=== PATIENT | male | born 1950 | race Caucasian/White ===

== ENCOUNTER 2019-08-16 10:35 | Day surgery (SDC) | payer MEDICARE, BC ==
[2019-08-09 12:04] LABS: BASOPHILS % (AUTO) 0.1 % (0-1); EOSINOPHILS # (AUTO) 0.1 X10'3 (0-0.9); EOSINOPHILS % (AUTO) 2.1 % (0-6); HEMATOCRIT 46.4 % (42.0-52.0); HEMOGLOBIN 15.6 g/dl (14.0-17.9); LYMPHOCYTES # (AUTO) 1.1 X10'3 (1.1-4.8); LYMPHOCYTES % (AUTO) 22.8 % (21-51); MEAN CORPUSCULAR HEMOGLOBIN 31.2 PG (27.0-31.0); MEAN CORPUSCULAR HGB CONC 33.6 g/dL (33.0-36.5); MEAN PLATELET VOLUME 7.9 FL (7.4-10.4); MONOCYTES # (AUTO) 0.5 X10'3 (0-0.9); MONOCYTES % (AUTO) 9.8 % (2-12); NEUTROPHILS # (AUTO) 3.1 X10'3 (1.8-7.7); NEUTROPHILS % (AUTO) 65.2 % (42-75); PLATELET COUNT 221 X10'3 (140-440); RED BLOOD COUNT 4.99 X10'6 (4.70-6.10); RED CELL DISTRIBUTION WIDTH 13.3 % (11.5-14.5); WHITE BLOOD COUNT 4.8 X10'3 (4.5-11.0)
[2019-08-09 12:11] LABS: PARTIAL THROMBOPLASTIN TIME 27 SECONDS (22-32)
[2019-08-09 12:22] LABS: ALANINE AMINOTRANSFERASE 24 U/L (12-78); ALBUMIN 3.9 G/DL (3.4-5.0); ALBUMIN/GLOBULIN RATIO 1.3 (1.1-1.5); ALKALINE PHOSPHATASE 45 IU/L (46-116); ANION GAP 7 (8-16); ASPARTATE AMINO TRANSFERASE 19 U/L (10-37); BILIRUBIN,TOTAL 0.5 MG/DL (0.1-1.0); BLOOD UREA NITROGEN 22 MG/DL (7-18); BUN/CREATININE RATIO 18.8 (5.4-32.0); CALCIUM 9.6 MG/DL (8.5-10.1); CHLORIDE 106 MMOL/L (99-107); CREATININE 1.17 MG/DL (0.60-1.10); GLUCOSE 217 MG/DL (70-104); POTASSIUM 4.3 MMOL/L (3.5-5.1); SODIUM 142 MMOL/L (135-145); TOTAL CARBON DIOXIDE 28.6 MMOL/L (24-32); eGFR 62 ML/MIN
[~2019-08-16] VITALS: Ht 177.8 cm; Wt 118.6 kg
[2019-08-16] VITALS (12 sets, daily range): BP systolic 98–122; BP diastolic 57–79
[2019-08-16] MEDS ORDERED: MESSAGE TO PHARMACY PO ONE (10:55)
[2019-08-16] MEDS ORDERED: dextrose 50%-water 50ml dispensing syringe IV PRN ×2 (10:55)
[2019-08-16] MEDS ORDERED: insulin Lispro (HumaLOG) vial - multi-dose SQ SCH (10:55)
[2019-08-16] MEDS ORDERED: LORazepam 0.5 MG tablet PO PRN (10:55)
[2019-08-16] MEDS ORDERED: diphenhydrAMINE 25mg capsule PO PRN (10:55)
[2019-08-16] MEDS ORDERED: dextrose ORAL solution 15 GM/59 ML bottle PO PRN ×2 (10:55)
[2019-08-16] MEDS ORDERED: normal saline 1,000 ML IV SCH (10:55)
[2019-08-16] MEDS ORDERED: nitroGLYCERIN 0.4mg SUBLingual tab SL PRN ×2 (10:55→13:30)
[2019-08-16] MEDS ORDERED: glucagon, human recombinant 1mg kit SUBCUT PRN (10:55)
[2019-08-16] MEDS ORDERED: [UNRECOGNIZED DRUG - OTHER] PO (11:52)
[2019-08-16] MEDS ORDERED: CHOL20004 PO (11:52)
[2019-08-16] MEDS ORDERED: SOLI5TAB2 PO (11:52)
[2019-08-16] MEDS ORDERED: NITR0.4T48 SL (11:52)
[2019-08-16] MEDS ORDERED: ATOR20TA PO (11:52)
[2019-08-16] MEDS ORDERED: AMLO5TAB4 PO (11:52)
[2019-08-16] MEDS ORDERED: FENO145T26 PO (11:52)
[2019-08-16] MEDS ORDERED: GLIMEPIRIDE PO (11:52)
[2019-08-16] MEDS ORDERED: FLO0.4C PO (11:52)
[2019-08-16] MEDS ORDERED: METF500T PO (11:52)
[2019-08-16] MEDS ORDERED: iohexol 350 MG/ML 50ML vial IV ONE (12:01)
[2019-08-16] MEDS ORDERED: iohexol 350MG/ML 100ml bottle IV ONE (12:01)
[2019-08-16] MEDS ORDERED: LIDOcaine 1% (10mg/ml)w/preservative injection 20ml MDV ONE (12:01)
[2019-08-16] MEDS ORDERED: fentaNYL/PF 50MCG/1 ML 2ML syringe ONE (12:05)
[2019-08-16] MEDS ORDERED: midazolam 2 mg/2 ml injection ONE (12:05)
[2019-08-16] MEDS ORDERED: HYDROcodone/acetaminophen 5mg/325mg tablet PO PRN (13:25)
[2019-08-16] MEDS ORDERED: ondansetron/PF 4mg/2ml inj IV PRN (13:25)
[2019-08-16] MEDS ORDERED: normal saline 1000ml 1,000 ML IV SCH (13:25)
[2019-08-16] MEDS ORDERED: OXAZEpam 15mg capsule PO PRN (13:30)
[2019-08-16] MEDS ORDERED: proCHLORperazine 10 MG/2 ml inj IV PRN (13:30)
[2019-08-16] MEDS ORDERED: HYDROcodone/acetaminophen 10/325mg tab PO PRN (13:30)
[2019-08-16] MEDS ORDERED: insulin glargine (Lantus) pen - multi-dose SQ SCH (21:00)
== END 2019-08-16 20:10 | disposition home or self-care (01) ==
LOC: SSTAY O 10:35
PROVIDERS: ATTEND Internal Medicine Cardiovascular Disease
DX: R94.39 Abnormal result of other cardiovascular function study (principal); I25.118 Atherosclerotic heart disease of native coronary artery with other forms of angina pectoris; G47.33 Obstructive sleep apnea (adult) (pediatric); J44.9 Chronic obstructive pulmonary disease, unspecified; E11.9 Type 2 diabetes mellitus without complications; I10 Essential (primary) hypertension; F32.9 Major depressive disorder, single episode, unspecified; E78.5 Hyperlipidemia, unspecified; M19.90 Unspecified osteoarthritis, unspecified site; Z79.899 Other long term (current) drug therapy; Z79.01 Long term (current) use of anticoagulants
CPT/HCPCS: 36415; 71046; 80053; 82948; 85025; 85610; 85730; 93005; 93458; 99152; 99153; C1769; J1644; J2001; J2250; J2405; J3010; J7030; Q0163; Q9967; 93459; A4620; A6258; C1760; J1815

== ENCOUNTER 2022-05-04 09:26 | Day surgery (SDC) | payer MEDICARE, BC ==
[2022-04-29 12:48] LABS: BASOPHILS % (AUTO) 0.6 % (0-1); EOSINOPHILS # (AUTO) 0.1 X10'3 (0-0.9); EOSINOPHILS % (AUTO) 1.5 % (0-6); HEMATOCRIT 37.4 % (42.0-52.0); HEMOGLOBIN 12.6 g/dl (14.0-17.9); LYMPHOCYTES % (AUTO) 19.4 % (21-51); MEAN CORPUSCULAR HEMOGLOBIN 31.6 PG (27.0-31.0); MEAN CORPUSCULAR HGB CONC 33.8 g/dL (33.0-36.5); MEAN CORPUSCULAR VOLUME 93.5 FL (78-98); MONOCYTES # (AUTO) 0.4 X10'3 (0-0.9); MONOCYTES % (AUTO) 7.9 % (2-12); NEUTROPHILS # (AUTO) 3.8 X10'3 (1.8-7.7); NEUTROPHILS % (AUTO) 70.6 % (42-75); PLATELET COUNT 211 X10'3 (140-440); RED CELL DISTRIBUTION WIDTH 13.1 % (11.5-14.5); WHITE BLOOD COUNT 5.3 X10'3 (4.5-11.0)
[2022-04-29 13:17] LABS: APTT 27 SECONDS (22-32)
[2022-04-29 13:19] LABS: ALANINE AMINOTRANSFERASE 27 U/L (12-78); ALBUMIN 3.8 G/DL (3.4-5.0); ALBUMIN/GLOBULIN RATIO 1.1 (1.1-1.5); ALKALINE PHOSPHATASE 47 IU/L (46-116); ANION GAP 11 (8-16); ASPARTATE AMINO TRANSFERASE 24 U/L (10-37); BILIRUBIN,TOTAL 0.3 MG/DL (0.1-1.0); BLOOD UREA NITROGEN 49 MG/DL (7-18); BUN/CREATININE RATIO 24.3 (5.4-32.0); CALCIUM 9.1 MG/DL (8.5-10.1); CHLORIDE 102 MMOL/L (99-107); CREATININE 2.02 MG/DL (0.60-1.10); GLUCOSE 191 MG/DL (70-104); POTASSIUM 5.1 MMOL/L (3.5-5.1); SODIUM 134 MMOL/L (135-145); TOTAL CARBON DIOXIDE 20.9 MMOL/L (24-32); TOTAL PROTEIN 7.2 G/DL (6.4-8.2); eGFR 33 ML/MIN
[~2022-05-04] VITALS: Ht 180.3 cm; Wt 115.0 kg
[2022-05-04] VITALS (12 sets, daily range): BP systolic 106–124; BP diastolic 47–73
[~2022-05-04 09:26] MED LIST: AMLO5TAB4 PO; ATOR20TA PO; CHOL20004 PO; FENO145T26 PO; FLO0.4C PO; GLIMEPIRIDE PO; METF500T PO; NITR0.4T48 SL; SOLI5TAB2 PO; [UNRECOGNIZED DRUG - OTHER] PO
[2022-05-04] MEDS ORDERED: nitroGLYCERIN 0.4mg SUBLingual tab SL PRN (09:50)
[2022-05-04] MEDS ORDERED: diphenhydrAMINE 25mg capsule PO PRN (09:50)
[2022-05-04] MEDS ORDERED: normal saline 1,000 ML IV SCH (09:50)
[2022-05-04] MEDS ORDERED: LORazepam 0.5 MG tablet PO PRN (09:50)
[2022-05-04] MEDS ORDERED: CLOP75TA34 PO (10:03)
[2022-05-04] MEDS ORDERED: DAPA5TAB PO (10:03)
[2022-05-04] MEDS ORDERED: OLME20TA23 PO (10:03)
[2022-05-04] MEDS ORDERED: TIRZ5PEN (10:03)
[2022-05-04] MEDS ORDERED: METO-395 PO (10:03)
[2022-05-04] MEDS ORDERED: ASPI-611 PO (10:06)
[2022-05-04] MEDS ORDERED: MULT-1085 PO (10:06)
[2022-05-04] MEDS ORDERED: SOLI10TA7 PO (10:11)
[2022-05-04] MEDS ORDERED: insulin Lispro (HumaLOG) vial - multi-dose SQ SCH (10:20)
[2022-05-04] MEDS ORDERED: dextrose 50%-water 50ml dispensing syringe IV PRN ×2 (10:20)
[2022-05-04] MEDS ORDERED: DEXTROSE 15 GM of carb/4 tabs (each vial/BOTTLE has 4 tablets) PO PRN ×2 (10:20)
[2022-05-04] MEDS ORDERED: glucagon, human recombinant 1mg kit SUBCUT PRN (10:20)
[2022-05-04] MEDS ORDERED: fentaNYL/PF 50MCG/1 ML 2ML syringe ONE (10:49)
[2022-05-04] MEDS ORDERED: LIDOcaine 1% 30ml preserv. free vial ONE (10:49)
[2022-05-04] MEDS ORDERED: midazolam 1 mg/ML 2ml injection ONE (10:49)
[2022-05-04] MEDS ORDERED: iohexol 300mg/ml 100ml inj. ONE (10:50)
[2022-05-04] MEDS ORDERED: iohexol 350 MG/ML 50ML vial IV ONE (10:50)
[2022-05-04] MEDS ORDERED: OXAZEpam 15mg capsule PO PRN (12:45)
[2022-05-04] MEDS ORDERED: HYDROcodone/acetaminophen 5mg/325mg tablet PO PRN (12:45)
[2022-05-04] MEDS ORDERED: proCHLORperazine 10 MG/2 ml inj IV PRN (12:45)
[2022-05-04] MEDS ORDERED: ondansetron/PF 4mg/2ml inj IV PRN (12:45)
[2022-05-04] MEDS ORDERED: HYDROcodone/acetaminophen 10/325mg tab PO PRN (12:45)
[2022-05-04] MEDS ORDERED: insulin glargine (Lantus) pen - multi-dose SQ SCH (21:00)
== END 2022-05-04 18:00 | disposition home or self-care (01) ==
LOC: SSTAY O 09:26
PROVIDERS: ATTEND Internal Medicine Cardiovascular Disease
DX: R94.39 Abnormal result of other cardiovascular function study (principal); I25.10 Atherosclerotic heart disease of native coronary artery without angina pectoris; I10 Essential (primary) hypertension; E78.5 Hyperlipidemia, unspecified; E11.9 Type 2 diabetes mellitus without complications; Z79.01 Long term (current) use of anticoagulants
CPT/HCPCS: 36415; 71046; 80053; 82948; 85025; 85610; 85730; 93005; 93458; 99152; C1760; C1769; J1644; J1815; J2250; J3010; J3490; J7030; Q0163; Q9967; 99153; A4620

== ENCOUNTER 2023-03-08 10:31 | Emergency (ER) | payer MEDICARE, BC ==
[~2023-03-08] VITALS: Ht 179.1 cm; Wt 100.9 kg
[~2023-03-08 10:31] MED LIST changes: -AMLO5TAB4 PO; +ASPI-611 PO; -ATOR20TA PO; +CLOP75TA34 PO; +DAPA5TAB PO; -GLIMEPIRIDE PO; +METO-395 PO; +MULT-1085 PO; +OLME20TA23 PO; +SOLI10TA7 PO; +TIRZ5PEN; -[UNRECOGNIZED DRUG - OTHER] PO
[2023-03-08 10:47] VITALS: TEMP 99.4
[2023-03-08 10:51] LABS: HEMATOCRIT 41.6 % (42.0-52.0); RED BLOOD COUNT 4.37 X10'6 (4.70-6.10)
[2023-03-08 10:53] LABS: BASOPHILS % (AUTO) 0.2 % (0-1); EOSINOPHILS % (AUTO) 0.1 % (0-6); HEMOGLOBIN 13.9 g/dl (14.0-17.9); LYMPHOCYTES # (AUTO) 0.8 X10'3 (1.1-4.8); LYMPHOCYTES % (AUTO) 5.9 % (21-51); MEAN CORPUSCULAR HEMOGLOBIN 31.8 PG (27.0-31.0); MEAN CORPUSCULAR HGB CONC 33.4 g/dL (33.0-36.5); MEAN CORPUSCULAR VOLUME 95.3 FL (78-98); MONOCYTES # (AUTO) 0.8 X10'3 (0-0.9); MONOCYTES % (AUTO) 5.4 % (2-12); NEUTROPHILS # (AUTO) 12.5 X10'3 (1.8-7.7); NEUTROPHILS % (AUTO) 88.4 % (42-75); PLATELET COUNT 195 X10'3 (140-440); RED CELL DISTRIBUTION WIDTH 13.7 % (11.5-14.5); WHITE BLOOD COUNT 14.1 X10'3 (4.5-11.0)
[2023-03-08 11:07] LABS: ALANINE AMINOTRANSFERASE 16 U/L (12-78); ALBUMIN 3.8 G/DL (3.4-5.0); ALBUMIN/GLOBULIN RATIO 1.1 (1.1-1.5); ALKALINE PHOSPHATASE 29 IU/L (46-116); ASPARTATE AMINO TRANSFERASE 16 U/L (10-37); BILIRUBIN,TOTAL 0.6 MG/DL (0.1-1.0); CALCIUM 9.5 MG/DL (8.5-10.1); TOTAL CARBON DIOXIDE 25.3 MMOL/L (24-32); TOTAL PROTEIN 7.2 G/DL (6.4-8.2)
[2023-03-08 11:15] LABS: PRO BRAIN NATRIURETIC PEPTIDE 412 PG/ML (0-125)
[2023-03-08 11:17] LABS: ANION GAP 8 (8-16); BLOOD UREA NITROGEN 44 MG/DL (7-18); BUN/CREATININE RATIO 17.7 (10.0-20.0); CHLORIDE 103 MMOL/L (99-107); CREATININE 2.48 MG/DL (0.60-1.10); GLUCOSE 166 MG/DL (70-104); SODIUM 136 MMOL/L (135-145); eCRCL 28 ML/MIN; eGFR 26 ML/MIN
[2023-03-08] MEDS ORDERED: normal saline 1000ML IV soln IVB ONE ×2 (12:40→12:50)
[2023-03-08 12:59] LABS: BILIRUBIN,URINE NEGATIVE (Neg); CLARITY,URINE CLEAR (Clear); COLOR,URINE YELLOW (Yellow); GLUCOSE, URINE >=1000 mg/dl (Neg); KETONES,URINE NEGATIVE (Neg); LEUKOCYTE ESTERASE ,URINE NEGATIVE (Neg); NITRITES, URINE NEGATIVE (Neg); OCCULT BLOOD,URINE NEGATIVE (Neg); PH,URINE 5.5 (4.8-8.0); PROTEIN,URINE NEGATIVE (Neg); UROBILINOGEN,URINE 0.2 E.U/dL (0.2-1.0)
[2023-03-08 13:06] LABS: UA COLLECTION TYPE CLN CATCH MIDSTREAM
[2023-03-08 13:08] LABS: BACTERIA,URINE NONE SEEN /HPF (Neg); RBC,URINE NONE SEEN /HPF (0-2); SQUAMOUS EPITHELIAL CELL,UR FEW /LPF (FEW); WBC,URINE 0-4 /HPF (0-4)
[2023-03-08 14:58] VITALS: BP 112/74; PULSE 74; RESP 16; O2SAT 98
== END 2023-03-08 14:59 | disposition home or self-care (01) ==
LOC: ER 10:31
DX: R55 Syncope and collapse (principal); I95.1 Orthostatic hypotension; E11.9 Type 2 diabetes mellitus without complications; I11.0 Hypertensive heart disease with heart failure; Z88.8 Allergy status to other drugs, medicaments and biological substances; Z79.899 Other long term (current) drug therapy
CPT/HCPCS: 36415; 70450; 71045; 80053; 81001; 83880; 84484; 85025; 93005; 96360; 99285; J7030

== ENCOUNTER 2024-07-10 21:51 | Inpatient (IN) | payer MEDICARE, BC ==
[~2024-07-10] VITALS: Ht 180.3 cm; Wt 99.7 kg
[~2024-07-10 21:51] MED LIST changes: -OLME20TA23 PO; +OLME20TA69 PO; -TIRZ5PEN; +TIRZ5PEN INJ
[2024-07-10] MEDS: normal saline 500ml IV soln 500 ML IV ONE (22:33)
[2024-07-10] MEDS: proCHLORperazine 10 MG/2 ml inj IV PRN (22:33)
[2024-07-10 22:36] LABS: BASOPHILS % (AUTO) 0.9 % (0-1); EOSINOPHILS # (AUTO) 0.1 X10'3 (0-0.9); EOSINOPHILS % (AUTO) 1.6 % (0-6); HEMATOCRIT 49.7 % (42.0-52.0); HEMOGLOBIN 17.2 g/dl (14.0-17.9); LYMPHOCYTES # (AUTO) 1.6 X10'3 (1.1-4.8); LYMPHOCYTES % (AUTO) 29.7 % (21-51); MEAN CORPUSCULAR HEMOGLOBIN 33.1 PG (27.0-31.0); MEAN CORPUSCULAR HGB CONC 34.6 g/dL (33.0-36.5); MEAN CORPUSCULAR VOLUME 95.6 FL (78-98); MEAN PLATELET VOLUME 7.6 FL (7.4-10.4); MONOCYTES # (AUTO) 0.5 X10'3 (0-0.9); MONOCYTES % (AUTO) 8.4 % (2-12); NEUTROPHILS # (AUTO) 3.2 X10'3 (1.8-7.7); NEUTROPHILS % (AUTO) 59.4 % (42-75); PLATELET COUNT 162 X10'3 (140-440); WHITE BLOOD COUNT 5.4 X10'3 (4.5-11.0)
[2024-07-10 22:49] LABS: ALBUMIN 3.9 G/DL (3.4-5.0); ANION GAP 8 (8-16); BLOOD UREA NITROGEN 21 MG/DL (7-18); BUN/CREATININE RATIO 18.4 (10.0-20.0); CALCIUM 9.4 MG/DL (8.5-10.1); CHLORIDE 102 MMOL/L (99-107); CREATININE 1.14 MG/DL (0.60-1.10); GLUCOSE 168 MG/DL (70-104); POTASSIUM 3.8 MMOL/L (3.5-5.1); SODIUM 137 MMOL/L (135-145); TOTAL CARBON DIOXIDE 27.2 MMOL/L (24-32); eCRCL 61 ML/MIN; eGFR 63 ML/MIN
[2024-07-10 22:54] LABS: APTT 28 SECONDS (22-32); INR 1.1 INR
[2024-07-10] MEDS ORDERED: iohexol 350MG/ML 100ml bottle IV ONE (23:15)
[2024-07-10 23:16] LABS: ETHANOL < 10 MG/DL (<10)
[2024-07-10 23:58] LABS: BILIRUBIN,URINE NEGATIVE (Neg); CLARITY,URINE CLEAR (Clear); COLOR,URINE YELLOW (Yellow); GLUCOSE, URINE 100 mg/dl (Neg); KETONES,URINE NEGATIVE (Neg); LEUKOCYTE ESTERASE ,URINE NEGATIVE (Neg); NITRITES, URINE NEGATIVE (Neg); OCCULT BLOOD,URINE NEGATIVE (Neg); PROTEIN,URINE NEGATIVE (Neg)
[2024-07-11 00:06] LABS: UA COLLECTION TYPE CLN CATCH MIDSTREAM
[2024-07-11] MEDS ORDERED: potassium Cl 40MEQ/1/2NS 520ml 520 ML IV PRN (00:45)
[2024-07-11] MEDS ORDERED: ondansetron/PF 4mg/2ml inj IV PRN (00:45)
[2024-07-11] MEDS ORDERED: potassium Cl 20 mEq SR tablet PO PRN ×2 (00:45)
[2024-07-11] MEDS ORDERED: magnesium sulf-water 4G/100mL 100 ML IV PRN (00:45)
[2024-07-11] MEDS ORDERED: magnesium sulf-water 2g/50mL 50 ML IV PRN (00:45)
[2024-07-11] MEDS ORDERED: magnesium Cl slow-release 64mg tablet PO PRN (00:45)
[2024-07-11] MEDS ORDERED: acetaminophen 325mg tablet PO PRN (00:45)
[2024-07-11 00:47] LABS: URINE AMPHETAMINE SCREEN NEGATIVE (Neg); URINE BARBITUATE SCREEN NEGATIVE (Neg); URINE BENZODIAZEPINES SCREEN NEGATIVE (Neg); URINE CANNABINOID SCREEN NEGATIVE (Neg); URINE COCAINE SCREEN NEGATIVE (Neg); URINE METHADONE SCREEN NEGATIVE (Neg); URINE OPIATE SCREEN NEGATIVE (Neg); URINE PHENCYCLIDINE SCREEN NEGATIVE (Neg)
[2024-07-11] MEDS ORDERED: GLIM1TAB57 PO (00:52)
[2024-07-11] MEDS ORDERED: aspirin 325mg tablet, delayed-release (Ecotrin) PO ONE (01:00)
[2024-07-11 01:32] LABS: MAGNESIUM 1.7 MG/DL (1.5-2.4)
[2024-07-11 01:36] LABS: HEMOGLOBIN A1C 5.9 % (4.5-6.2)
[2024-07-11] MEDS: acetaminophen 325mg tablet PO ONE (02:13)
[2024-07-11] MEDS: aspirin 81mg, enteric-coated 1 TAB TABLET.DR PO ONE (02:13)
[2024-07-11 02:23] LABS: ALANINE AMINOTRANSFERASE 20 U/L (12-78); ASPARTATE AMINO TRANSFERASE 15 U/L (10-37)
[2024-07-11] MEDS ORDERED: normal saline 500ml IV soln 500 ML IV ONE (02:50)
[2024-07-11 03:45] VITALS: BP 154/76; PULSE 77; RESP 16; TEMP 98.3; O2SAT 94
[2024-07-11] MEDS ORDERED: DEXTROSE 15 GM of carb/4 tabs (each vial/BOTTLE has 4 tablets) PO PRN ×2 (05:45)
[2024-07-11] MEDS ORDERED: glucagon, human recombinant 1mg kit SUBCUT PRN (05:45)
[2024-07-11] MEDS ORDERED: dextrose 50%-water 50ml dispensing syringe IV PRN ×2 (05:45)
[2024-07-11 06:00] VITALS: BP 126/62; PULSE 71; RESP 14; TEMP 98.3; O2SAT 93
[2024-07-11 06:50] LABS: CHOLESTEROL 179 MG/DL (0-200); HDL CHOLESTEROL 36 MG/DL (35-60); LDL CHOLESTEROL 95 MG/DL (50-100); TRIGLYCERIDES 254 MG/DL (20-135)
[2024-07-11] MEDS: K and/or MAG REPLACEMENT MC SCH (08:00)
[2024-07-11] MEDS ORDERED: glimepiride 1 MG tablet PO SCH (08:00)
[2024-07-11] MEDS ORDERED: clopidogrel 75mg tablet PO SCH (08:00)
[2024-07-11] MEDS: DAPAGLIFLOZIN 10MG TABLET PO SCH (08:00)
[2024-07-11] MEDS: aspirin 81mg tab.chew PO SCH (08:31)
[2024-07-11] MEDS: cholecalciferol (vitamin D3) 1,000 unit (25mcg) tablet PO SCH (08:31)
[2024-07-11] MEDS: metFORMIN 500mg tablet PO SCH (08:31)
[2024-07-11] MEDS: multivitamins, therapeutics tablet PO SCH (08:31)
[2024-07-11] MEDS: clopidogrel 75mg tablet PO SCH (08:31)
[2024-07-11] MEDS: fenofibrate 145mg tablet PO SCH (08:31)
[2024-07-11] MEDS: tamsulosin 0.4mg capsule PO SCH (08:31)
[2024-07-11] MEDS: oxybutynin 5mg tablet PO SCH (08:32)
[2024-07-11 10:00] VITALS: BP 135/65; PULSE 74; RESP 15; TEMP 98.6; O2SAT 94
[2024-07-11] MEDS ORDERED: CHOL100046 PO (17:32)
[2024-07-11] MEDS ORDERED: FLO0.4C PO (17:32)
[2024-07-12] MEDS ORDERED: cholecalciferol (vitamin D3) 1,000 unit (25mcg) tablet PO SCH (08:00)
[2024-07-15 17:17] LABS: HEPARIN ANTI-XA LMWH <0.10 IU/mL (.)
== END 2024-07-11 18:05 | disposition home or self-care (01) | DRG 69 ==
LOC: ER 21:52 → ED HOLD 07-11 01:27 → ORTHO 4S 07-11 03:30
PROVIDERS: ADMIT Internal Medicine Sleep Medicine; ATTEND Internal Medicine
PROC: B3251ZZ Computerized Tomography (CT Scan) of Bilateral Common Carotid Arteries using Low Osmolar Contrast (ICD-10-PCS; principal; 2024-07-11)
PROC: B32G1ZZ Computerized Tomography (CT Scan) of Bilateral Vertebral Arteries using Low Osmolar Contrast (ICD-10-PCS; 2024-07-11)
PROC: B32R1ZZ Computerized Tomography (CT Scan) of Intracranial Arteries using Low Osmolar Contrast (ICD-10-PCS; 2024-07-11)
PROC: B3281ZZ Computerized Tomography (CT Scan) of Bilateral Internal Carotid Arteries using Low Osmolar Contrast (ICD-10-PCS; 2024-07-11)
DX: G45.9 Transient cerebral ischemic attack, unspecified (principal); I10 Essential (primary) hypertension; I25.10 Atherosclerotic heart disease of native coronary artery without angina pectoris; E11.9 Type 2 diabetes mellitus without complications; Z95.5 Presence of coronary angioplasty implant and graft; Z79.82 Long term (current) use of aspirin; Z79.899 Other long term (current) drug therapy; Z79.84 Long term (current) use of oral hypoglycemic drugs
CPT/HCPCS: 36415; 70450; 70496; 70498; 70551; 71045; 80048; 80061; 80305; 80320; 81003; 82948; 83036; 83735; 84450; 84460; 84484; 85025; 85610; 85730; 86592; 87081; 92508; 92616; 93005; 97116; 97161; 97530; 99291; G0378; J0780; J7030; J7040; Q9967

== ENCOUNTER 2024-08-02 15:42 | Outpatient (CLI) | payer MEDICARE, BC ==
[~2024-08-02 15:42] MED LIST changes: +CHOL100046 PO; -CHOL20004 PO; -METF500T PO; -SOLI10TA7 PO; -SOLI5TAB2 PO; -TIRZ5PEN INJ
[2024-08-02 16:26] LABS: BASOPHILS # (AUTO) 0.1 X10'3 (0-0.2); BASOPHILS % (AUTO) 0.7 % (0-1); EOSINOPHILS # (AUTO) 0.1 X10'3 (0-0.9); EOSINOPHILS % (AUTO) 1.6 % (0-6); HEMATOCRIT 51.8 % (42.0-52.0); HEMOGLOBIN 17.1 g/dl (14.0-17.9); LYMPHOCYTES # (AUTO) 1.8 X10'3 (1.1-4.8); LYMPHOCYTES % (AUTO) 22.8 % (21-51); MEAN CORPUSCULAR HEMOGLOBIN 32.1 PG (27.0-31.0); MEAN CORPUSCULAR HGB CONC 33.1 g/dL (33.0-36.5); MONOCYTES # (AUTO) 0.7 X10'3 (0-0.9); MONOCYTES % (AUTO) 8.9 % (2-12); NEUTROPHILS # (AUTO) 5.1 X10'3 (1.8-7.7); PLATELET COUNT 218 X10'3 (140-440); RED BLOOD COUNT 5.34 X10'6 (4.70-6.10); RED CELL DISTRIBUTION WIDTH 13.4 % (11.5-14.5); WHITE BLOOD COUNT 7.7 X10'3 (4.5-11.0)
[2024-08-02 16:36] LABS: CLARITY,URINE CLEAR (Clear); COLOR,URINE ORANGE (Yellow); UA COLLECTION TYPE CLN CATCH MIDSTREAM
[2024-08-02 16:38] LABS: BACTERIA,URINE NONE SEEN /HPF (Neg); MUCUS STRANDS NONE SEEN /LPF (Neg); RBC,URINE NONE SEEN /HPF (0-2); SQUAMOUS EPITHELIAL CELL,UR FEW /LPF (FEW); WBC,URINE 0-4 /HPF (0-4)
[2024-08-02 16:41] LABS: ALANINE AMINOTRANSFERASE 23 U/L (12-78); ALBUMIN 3.8 G/DL (3.4-5.0); ALKALINE PHOSPHATASE 52 IU/L (46-116); ANION GAP 6 (8-16); ASPARTATE AMINO TRANSFERASE 14 U/L (10-37); BILIRUBIN,TOTAL 0.5 MG/DL (0.1-1.0); BLOOD UREA NITROGEN 23 MG/DL (7-18); BUN/CREATININE RATIO 17.7 (10.0-20.0); CALCIUM 9.1 MG/DL (8.5-10.1); CHLORIDE 104 MMOL/L (99-107); GLUCOSE 202 MG/DL (70-104); SODIUM 142 MMOL/L (135-145); TOTAL CARBON DIOXIDE 31.6 MMOL/L (24-32); TOTAL PROTEIN 7.7 G/DL (6.4-8.2); eGFR 54 ML/MIN
[2024-08-05 20:18] LABS: CHLAMYDIA TRACHOMATIS, NAA Negative (Negative)
== END 2024-08-02 23:59 | disposition home or self-care (01) ==
LOC: RAD 15:42
PROVIDERS: ATTEND Nurse Practitioner Primary Care
DX: Z11.3 Encounter for screening for infections with a predominantly sexual mode of transmission (principal); R82.79 Other abnormal findings on microbiological examination of urine; R79.89 Other specified abnormal findings of blood chemistry; R68.89 Other general symptoms and signs
CPT/HCPCS: 36415; 80053; 81001; 85025; 86592; 87491